=== PATIENT | female | born 1955 | race Caucasian/White ===

== ENCOUNTER 2020-02-06 10:10 | Day surgery (SDC) | payer OTHER, SELFPAY ==
[2020-02-06] VITALS (7 sets, daily range): BP systolic 132–150; BP diastolic 93–102; PULSE 93–134; RESP 14–18; TEMP 36.1–36.8; O2SAT 95–99
--- NOTE | ~2020-02-06 | XR_ITS ---
EXAMINATION: XR retrograde pyelo w/stent LT EXAM DATE: 02/06/2020 13:39 INDICATION: Left-sided retrograde, stent placement. TECHNIQUE: Fluoroscopy used during XR retrograde pyelo w/stent LT performed by Dr. Kenisha Vera MD. The DAP for this procedure was 341 radcm2. FINDINGS: Left ureter was cannulated, injected. Mild left hydronephrosis. A double-J ureteral stent was positioned. Correlate with procedure note. IMPRESSION: Fluoroscopy used during XR retrograde pyelo w/stent LT. Reviewed, dictated and finalized at location A. S MANAGER
--- NOTE | ~2020-02-06 | XR_ITS ---
EXAMINATION: XR abdomen/kub 1V EXAM DATE: 02/06/2020 11:47 INDICATION: Kidney stone. TECHNIQUE: Frontal projection(s) of the abdomen for interpretation. Correlation is made to CT same da te. FINDINGS: 1.5 cm stone in the left ureteropelvic junction identified, indicated. Nonobstructive klaus l gas pattern. Moderate to severe lumbar spondylosis. There is no organomegaly. IMPRESSION: Left UPJ stone identified. Reviewed, dictated and finalized at location A. L EQUIPMENT MECHANIC IMPRESSION: Left UPJ stone identified.
--- NOTE | ~2020-02-06 | CT_ITS ---
EXAMINATION: CT abdomen pelvis wo con EXAM DATE: 02/06/2020 10:56 INDICATION: Left flank pain. Vomiting. Renal stones. TECHNIQUE: Spiral CT of the abdomen and pelvis was performed without contrast. Axial, coronal and sag ittal images were reviewed. The dose-length product (DLP) for this examination was 558.98 mGy-cm. T he exposure was tailored according to patient size (auto mA exposure control), and iterative reconstr uction (ASIR) was used as additional dose reduction technique. Comparison is made to prior examinatio n from 03/11/2011. FINDINGS: There is a left renal pelvic 1.5 cm stone, moderate obstructive nephropathy. No other genit ourinary calcifications. The uterus is unremarkable. The bladder is unremarkable. There is hepati c steatosis without suspicious focal lesion identified. Spleen, adrenal glands, pancreas are unremark able. Gallbladder is unremarkable. No biliary obstruction. There is no retroperitoneal or pelvic l ymphadenopathy. There is mild scattered arteriosclerotic disease. The appendix is normal. There is small sliding gastroesophageal hiatal hernia. There is expected am ount of colonic stool. No free intraperitoneal gas. Couple of small right breast nodules, patient did have a mammogram in 2019 so recommend continued myrtle ual surveillance. Aortic root measures 4.2 cm, mildly dilated. A sclerotic region within L4 and mild chronic L5 compression fractures are unchanged going back to 2010. IMPRESSION: 1. Left UPJ 1.5 cm stone, moderate obstructive nephropathy. 2. Several left breast nodules probably previously evaluated on mammogram last year. Recommend lenard nued mammogram screening. 3. Small hiatal hernia. 4. Hepatic steatosis. Reviewed, dictated and finalized at location A. NG AND QUARRYING MACHINERY REPAIRER IMPRESSION: 1. Left UPJ 1.5 cm stone, moderate obstructive nephropathy. 2. Several left breast nodules probably previously evaluated on mammogram last year. Recommend continued mammogram screening. 3. Small hiatal hernia. 4. Hepatic steatosis.
--- NOTE | 2020-02-06 10:37 | ED.ABDPAIN ---
HPI - Abdominal Pain General Chief Complaint: Abdominal Pain Stated Complaint: lt flank pain, nausea Time Seen by Provider: 02/06/20 10:17 Source: RN notes reviewed History of Present Illness HPI narrative: Patient presents emergency department from home for left flank pain. Patient states pain began yesterday pain is located left flank does not radiate described as sharp and stabbing associate with nausea vomiting. Patient states she has a history of previous kidney stones and feels similar of the past states she did not take any pain medication this morning denies any diarrhea Related Data Home Medications Medication Instructions Recorded Confirmed multivitamin 1 tablet PO DAILY 05/30/19 potassium 99 mg tablet mg PO 05/30/19 vitamin E (dl, acetate) 400 unit 400 unit PO DAILY 05/30/19 capsule mecobalamin (vitamin B12) 1,000 1,000 mcg PO DAILY 10/31/19 10/31/19 mcg chewable tablet Allergies Allergy/AdvReac Type Severity Reaction Status Date / Time No Known Allergies Allergy Verified 02/06/20 10:27 Review of Systems Review of Systems: Narrative: Gen.: Denies fevers or chills ENT: Denies congestion Respiratory: Denies shortness of breath or cough CV: Denies chest pain or palpitations GI: Denies abdominal pain reports nausea vomiting denies diarrhea denies burning, urgency, frequency or hematuria Musculoskeletal: Denies back pain or muscle pain Neuro: Denies numbness, tingling, weakness or focal weakness Skin: Denies rash Except as documented, all other systems reviewed and negative PMFSH Past Medical History Medical History (Updated 02/06/20 @ 12:40 by Alejandro Marcum DO) Alcohol use Benign essential HTN High blood triglycerides Hydronephrosis Left ureteral stone MDD (major depressive disorder) Transaminitis Family History Family History Father Family history of premature coronary heart disease Hypertension Family history of elevated blood lipids Social History Social History Social History: Smoking status: Never smoker Second hand tobacco smoke exposure: No Alcohol intake: current Drinks per week: 14 Substance use: never Substance use type: does not use Gender identity (if verbalized by the patient): Female Exam Narrative: Exam Narrative: APPEARANCE: No acute distress, nontoxic, resting in bed HEENT: Normocephalic, atraumatic, OMM RESPIRATORY: No respiratory distress, clear to auscultation bilaterally with no rhonchi wheezing or rales CARDIOVASCULAR: RRR s murmur ABDOMINAL: Soft, nondistended, nontender palpation no rebound or guarding, left flank tenderness MUSCULOSKELETAl: Moves all extremities. No clubbing, cyanosis or edema. NEURO: Awake and alert. Following commands, speech normal, no focal deficits SKIN:: Warm, dry. Normal Color PSYCHIATRIC: Normal affect/mood Course Course Emergency Course: Called and discussed with Dr. Bravo presentation work-up. At this time agrees with plan to take patient to the OR for stent placement Discussed with patient plan for or in agreement at this time Vital Signs Vital signs: Vital Signs Temperature 97.0 F L 02/06/20 10:23 Pulse Rate 103 H 02/06/20 10:23 Respiratory Rate 18 02/06/20 10:23 Blood Pressure 150/97 H 02/06/20 10:23 Pulse Oximetry 99 02/06/20 10:23 Temperature 97.0 F L 02/06/20 10:23 Pulse Rate 96 02/06/20 11:04 Respiratory Rate 18 02/06/20 11:04 Blood Pressure 148/95 H 02/06/20 11:04 Pulse Oximetry 99 02/06/20 11:04 MDM - Abdominal Pain Lab Data Result diagrams: 02/06/20 10:33 02/06/20 10:33 Labs: Lab Results 02/06/20 02/06/20 02/06/20 Range/Units 10:33 10:33 11:36 WBC 12.4 H (4.5-10.0) K/mm3 RBC 4.38 (4.2-5.4) M/mm3 Hgb 15.4 H (12.0-15.0) g/dL Hct 42.6 (37.0-47.0) % MCV 97.3 (80-100)
[2020-02-06 10:41] LABS: Basophils Percent Auto 0.2 % (0.2-1.2); Hematocrit 42.6 % (37.0-47.0); Hemoglobin 15.4 g/dL (12.0-15.0); Immature Granulocyte Absolute 0.06 K/mm3 (0.00-0.031); Immature Granulocyte Percent A 0.5 % (0-0.5); Lymphocytes Absolute Auto 1.12 K/mm3 (0.9-3.2); Lymphocytes Percent Auto 9.1 % (18.3-44.2); Mean Corpuscular HGB Conc 36.2 g/dl (32-36); Mean Corpuscular Hemoglobin 35.2 pg (26-34); Mean Corpuscular Volume 97.3 fl (80-100); Mean Platelet Volume 9.3 fl (7.4-10.4); Monocytes Absolute Auto 0.6 K/mm3 (0.1-0.6); Monocytes Percent Auto 4.5 % (2.6-8.5); Neutrophils Absolute Auto 10.6 K/mm3 (1.3-6.7); Neutrophils Percent Auto 85.7 % (45.5-73.1); Platelet Count Result 271 k/mm3 (150-375); Red Blood Count 4.38 M/mm3 (4.2-5.4); Red Cell Distribution Width 11.7 % (11.5-14.5); White Blood Count 12.4 K/mm3 (4.5-10.0)
[2020-02-06] MEDS: SODIUM CHLORIDE 0.9% IV 1,000 ML 999 ML IV CONT (10:44)
[2020-02-06] MEDS: ONDANSETRON INJ 4 MG/2 ML VIAL IV PUSH (10:45)
[2020-02-06 10:54] LABS: Anion Gap 16 mmol/L (8-16); Blood Urea Nitrogen 21 mg/dL (7-17); Calcium 9.5 mg/dL (8.4-10.2); Carbon Dioxide 22 mmol/L (22-30); Chloride 98 mmol/L (98-107); Estimated CRCL calculation 45 ml/min; Estimated Glomerular Filt Rate 56; Glucose 149 mg/dL (65-105); Potassium 4.3 mmol/L (3.4-5.0); Sodium 136 mmol/L (137-145)
[2020-02-06 11:49] LABS: Add Urine Microscopic? YES; Appearance Urine Clear (Clear); Bilirubin Urine Negative (Negative); Blood Urine 1+ (Negative); Color Urine Yellow (Yellow); Glucose Urine UA Negative (Negative); Ketones Urine Negative (Negative); Leukocyte Esterase Ur Trace LEU/UL (Negative); Nitrate Urine Negative (Negative); Protein Urine 1+ mg/dL (Negative); Specific Grav Ur 1.024 (1.001-1.035); Squamous Epithelial Cell Urine Few /hpf (Few); Transitional Epi Cells Urine Rare /hpf (None Seen); Urobilinogen Urine Negative mg/dL (<2.0)
--- NOTE | 2020-02-06 12:33 | WPDURCON ---
Assessment and Plan Assessment and plan (1) Left ureteral stone: Code(s): N20.1 - Calculus of ureter Status: Acute Assessment and Plan: Left UPJ 1.5 cm stone, moderate obstructive nephropathy. -risks benefits alternatives discussed the patient. The patient has elected to proceed with cystoscopy and left ureteral stenting today. The patient understands risks of procedure including not limited to infection, bleeding, pain, injury to surrounding structures, inability to place a stent. She understands the stent is a temporary device. She understands that she will need definitive stone intervention down the road. As the stone seen on KUB we will hopefully get the patient scheduled for an outpatient ESWL procedure (2) Hydronephrosis: Code(s): N13.30 - Unspecified hydronephrosis Status: Acute Urology Consult Note HPI Date Seen: 02/06/20 Requesting Physician: Kenisha Vera MD Primary Care Provider: Pamela Ayala MD Consult Narrative Narrative: Pricilla Bender is a 64 year old female with a history of stone disease. She underwent a lithotripsy with Dr. Martin in 2011 for a left 8mm ureteral stone. The patient presented to the emergency department today with multiple days of nausea and vomiting with flank pain. The patient was found on CT scan imaging to have a 15mm left proximal ureteral stone with associated hydronephrosis. The patient denies fever chills. Review of Systems Constitutional: Constitutional: Reports as per HPI Eyes: Eyes: Reports as per HPI Cardiovascular: Cardiovascular: Reports as per HPI Respiratory: Respiratory: Reports as per HPI FORMERLY [facility], [facility] Past Medical History Medical History (Updated 02/06/20 @ 12:37 by Kenisha Vera MD) Alcohol use Benign essential HTN High blood triglycerides Hydronephrosis Left ureteral stone MDD (major depressive disorder) Transaminitis Family History Family History Father Family history of premature coronary heart disease Hypertension Family history of elevated blood lipids Social History Social History Social History: Smoking status: Never smoker Second hand tobacco smoke exposure: No Alcohol intake: current Drinks per week: 14 Substance use: never Substance use type: does not use Gender identity (if verbalized by the patient): Female Meds Home Medications and Allergies Home Medications Medication Instructions Recorded Confirmed Type omeprazole 40 mg capsule,delayed 40 mg PO DAILY #90 cap 04/24/19 Rx release multivitamin 1 tablet PO DAILY 05/30/19 History potassium 99 mg tablet mg PO 05/30/19 History vitamin E (dl, acetate) 400 unit 400 unit PO DAILY 05/30/19 History capsule venlafaxine 75 mg capsule,extended 75 mg PO DAILY #90 cap 10/10/19 Rx release 24 hr lisinopril 10 1 tablet PO DAILY #90 tablet 10/17/19 10/17/19 Rx mg-hydrochlorothiazide 12.5 mg tablet mecobalamin (vitamin B12) 1,000 1,000 mcg PO DAILY 10/31/19 10/31/19 History mcg chewable tablet metoprolol succinate 50 mg 50 mg PO DAILY #90 tablet 11/27/19 Rx tablet,extended release 24 hr Allergies Allergy/AdvReac Type Severity Reaction Status Date / Time No Known Allergies Allergy Verified 02/06/20 10:27 Vital Signs Vital Signs - 24 hr 02/06/20 10:23 02/06/20 11:04 Temperature 36.1 C L Pulse Rate 103 H 96 Respiratory Rate 18 18 Blood Pressure 150/97 H 148/95 H Pulse Oximetry 99 99 Exam Const: General: cooperative, healthy appearing and comfortable HENMT: Head: normal to inspection Eyes: General: appearance normal, both eyes and all related structures Resp: Effort & Inspection: normal respiratory effort GI: Inspection: normal to inspection Back/Spine/Pelvis: Back: no CVA tenderness Results Labs CBC & Chem 7: 02/06/20 10:33 02/05
--- NOTE | 2020-02-06 12:37 | WPDANESEPPF ---
Anes - Initial Pre Proc Eval Procedure: Operation Date: 02/06/20 13:00 Proposed Procedures p Cystoscopy, Left Stent Placement - Kenisha Vera MD Date/Time: 02/06/20 12:37 Surgeon: Kenisha Vera MD Pre Op Diagnosis: lt flank pain, nausea Patient Data Age: 64 Gender: F Height: 5 ft 5 in Weight: 72.5 kg Last Vital Signs Temp 97.0 F L 02/06/20 10:23 Pulse 96 02/06/20 11:04 Resp 18 02/06/20 11:04 BP 148/95 H 02/06/20 11:04 Pulse Ox 99 02/06/20 11:04 Allergies Allergy/AdvReac Type Severity Reaction Status Date / Time No Known Allergies Allergy Verified 02/06/20 10:27 Home Medications Medication Instructions Recorded Confirmed Type omeprazole 40 mg capsule,delayed 40 mg PO DAILY #90 cap 04/24/19 Rx release multivitamin 1 tablet PO DAILY 05/30/19 History potassium 99 mg tablet mg PO 05/30/19 History vitamin E (dl, acetate) 400 unit 400 unit PO DAILY 05/30/19 History capsule venlafaxine 75 mg capsule,extended 75 mg PO DAILY #90 cap 10/10/19 Rx release 24 hr lisinopril 10 1 tablet PO DAILY #90 tablet 10/17/19 10/17/19 Rx mg-hydrochlorothiazide 12.5 mg tablet mecobalamin (vitamin B12) 1,000 1,000 mcg PO DAILY 10/31/19 10/31/19 History mcg chewable tablet metoprolol succinate 50 mg 50 mg PO DAILY #90 tablet 11/27/19 Rx tablet,extended release 24 hr Laboratory Tests 02/06/20 02/06/20 02/06/20 10:33 10:33 11:36 WBC 12.4 K/mm3 H K/mm3 (4.5-10.0) RBC 4.38 M/mm3 M/mm3 (4.2-5.4) Hgb 15.4 g/dL H g/dL (12.0-15.0) Hct 42.6 % % (37.0-47.0) MCV 97.3 fl fl (80-100) MCH 35.2 pg H pg (26-34) MCHC 36.2 g/dl H g/dl (32-36) RDW 11.7 % % (11.5-14.5) Plt Count 271 k/mm3 k/mm3 (150-375) MPV 9.3 fl fl (7.4-10.4) Immature Gran % (Auto) 0.5 % % (0-0.5) Neut % (Auto) 85.7 % H % (45.5-73.1) Lymph % (Auto) 9.1 % L % (18.3-44.2) [place] % (Auto) 4.5 % % (2.6-8.5) Eos % (Auto) 0.0 % % (0-4.4) Baso % (Auto) 0.2 % % (0.2-1.2) Lymph # (Auto) 1.12 K/mm3 K/mm3 (0.9-3.2) [place] # (Auto) 0.6 K/mm3 K/mm3 (0.1-0.6) Eos # (Auto) 0.0 K/mm3 K/mm3 (0-0.3) Baso # (Auto) 0.0 K/mm3 K/mm3 (0.0-0.1) Abs Immat Gran (auto) 0.06 K/mm3 H K/mm3 (0.00-0.031) Absolute Neuts (auto) 10.6 K/mm3 H K/mm3 (1.3-6.7) Absolute Nucleated RBC 0.0 K/mm3 K/mm3 (0.0-0.012) Nucleated RBC % 0.0 % % (0.0-0.2) Sodium 136 mmol/L L mmol/L (137-145) Potassium 4.3 mmol/L mmol/L (3.4-5.0) Chloride 98 mmol/L mmol/L (98-107) Carbon Dioxide 22 mmol/L mmol/L (22-30) Anion Gap 16 mmol/L mmol/L (8-16) BUN 21 mg/dL H mg/dL (7-17) Creatinine 1.00 mg/dL mg/dL (0.7-1.0) Estim Creat Clear Calc 45 ml/min ml/min Estimated GFR 56 L (59 - ) Glucose 149 mg/dL H mg/dL (65-105) Calcium 9.5 mg/dL mg/dL (8.4-10.2) Urine Color Yellow (Yellow) Urine Appearance Clear (Clear) Urine pH 6.0 (5.0-9.0) Ur Specific Jay 1.024 (1.001-1.035) Urine Protein 1+ mg/dL H mg/dL (Negative) Urine Glucose (UA) Negative mg/dL mg/dL (Negative) Urine Ketones Negative mg/dL mg/dL (Negative) Ur Blood (Man) 1+ H (Negative) Urine Nitrate Negative (Negative) Urine Bilirubin Negative (Negative) Urine Urobilinogen Negative mg/dL mg/dL (<2.0) Leukocyte Esterase Rfl Trace KRISTAN/UL H KRISTAN/UL (Negative) Urine RBC 6-10 /hpf H /hpf (0-2) Urine WBC 4-6 /hpf H /hpf Ur Squamous Epith Cells Few /hpf /hpf (Few) Ur Transition Epith Cell Rare /hpf /hpf (None Seen) Hyaline Casts 1-
[2020-02-06] MEDS: LACTATED RINGERS 1,000 ML 30 ML IV CONT (12:58)
--- NOTE | 2020-02-06 13:07 | WPDHPUPDATE1 ---
History and Physical Update Update Date/Time: 02/06/20 13:07 History and Physical has been reviewed, including an updated exam of the patient. There are NO changes in the patient's condition. Risks, benefits, and alternatives have been discussed and questions answered. Patient agrees to proceed with procedure.
[2020-02-06] MEDS: LIDOCAINE HCL 2% GEL UROJET 10 ML PKG MUCOUS MEM (13:29)
--- NOTE | 2020-02-06 13:29 | PM.PROC ---
Procedure Note - Detailed Date of procedure: 02/06/20 Pre-op diagnosis: lt flank pain, nausea left proximal ureteral stone Post-op diagnosis: same Procedure performed: Cystoscopy, left retrograde pyelogram, left renal stent insertion Description of procedure: Informed consent was obtained. Patient taken the operating. She was given a mac anesthetic. She was given preoperative IV antibiotics in the emergency department. She was placed in the dorsal lithotomy position. She was prepped and draped normal sterile fashion. A 22 F cystoscope was inserted through the urethra into the bladder reinspected the bladder and it was without mucosal abnormality. The patient had bilateral orthotopic ureteral orifices. Licensed Prosthetist film revealed the 2cm UPJ stone to be visible. We then performed retrograde pyelogram in advance the wire beyond the level of the stone. We placed a 4.8 variable length stent with a curl in the renal pelvis and a curl in the bladder. The bladder was emptied and then 10cc of viscous lidocaine were instilled. Patient to PACU in stable condition. She will have elective ESWL in the near future Anesthesia: MAC Surgeon: Kenisha Vera MD Drains: No Packing: No Pathology: none sent Complications: No immediate complications Condition: stable Disposition: PACU
== END 2020-02-06 15:00 | disposition home or self-care (01) ==
LOC: ANHED 12:09 → ANHSURGERY 12:20
PROVIDERS: Emergency Provider Emergency Medicine; PCP Family Medicine; Visit Provider Urology
PROC: (CPT 52352; principal; 2020-02-06 13:00)
DX: N13.2 Hydronephrosis with renal and ureteral calculous obstruction (principal); N39.0 Urinary tract infection, site not specified; I10 Essential (primary) hypertension; E78.1 Pure hyperglyceridemia; F32.9 Major depressive disorder, single episode, unspecified
CPT/HCPCS: 52332; 36415; 74018; 74176; 74420; 80048; 81001; 85025; 87086; 87088; 96361; 96365; 96367; 96375; 99285; A9270; C1769; C1887; C2617; J0131; J0696; J2250; J2405; J2704; J7030; J7120; Q9966

== ENCOUNTER 2020-02-07 00:09 | Outpatient (CLI) | payer OTHER, SELFPAY ==
[2020-02-07 21:00] LABS: SARS-CoV-2 RNA PCR Negative
== END 2020-02-07 00:10 | disposition home or self-care (01) ==
LOC: ANHCOVIDDT 00:10
PROVIDERS: PCP Family Medicine; Visit Provider Urology
DX: Z01.812 Encounter for preprocedural laboratory examination (principal); Z20.828 Contact with and (suspected) exposure to other viral communicable diseases
CPT/HCPCS: 87635; C9803; U0003

== ENCOUNTER 2020-02-07 09:17 | Outpatient (CLI) | payer OTHER, SELFPAY ==
--- NOTE | 2020-02-07 09:00 | ECG_ITS ---
Measurements Intervals [place] Rate: 92 P: 22 AL: 137 QRS: -25 QRSD: 82 T: 2 QT: 348 QTc: 431 Interpretive Statements SINUS RHYTHM POSSIBLE LEFT ATRIAL ENLARGEMENT VOLTAGE CRITERIA FOR LVH POOR R WAVE PROGRESSION, ANTERIOR LEADS BORDERLINE T WAVE ABNORMALITY- INFERIOR LEADS BASELINE WANDER- V3 BORDERLINE ECG Electronically Signed On 02-07-2020 10:00:05 ENTERPRISE ACCOUNT EXECUTIVE by Tor Tavares D.O.
[2020-02-07 09:52] LABS: Prothrombin Time 13.5 Seconds (11.1-14.7)
== END 2020-02-07 09:18 | disposition home or self-care (01) ==
LOC: ANHSURGERY 09:18
PROVIDERS: PCP Family Medicine; Visit Provider Urology
DX: N20.0 Calculus of kidney (principal); I10 Essential (primary) hypertension; Z01.818 Encounter for other preprocedural examination; R94.31 Abnormal electrocardiogram [ECG] [EKG]
CPT/HCPCS: 36415; 85610; 85730; 93005

== ENCOUNTER 2020-02-08 04:50 | Day surgery (SDC) | payer OTHER, SELFPAY ==
[2020-02-06 14:54] VITALS: BMI 26.6
[2020-02-08] VITALS (8 sets, daily range): BP systolic 125–154; BP diastolic 75–101; PULSE 83–96; RESP 16–20; TEMP 36.2–36.6; O2SAT 92–100
--- NOTE | ~2020-02-08 | XR_ITS ---
EXAMINATION: XR abdomen/kub 1V DATE: 02/08/2020 07:49 INDICATION: Left kidney stone. TECHNIQUE: A supine view of the abdomen on 2 radiographs was obtained. COMPARISON: Abdomen radiograph 02/06/2020, CT abdomen and pelvis 02/06/2020 FINDINGS: There are no dilated loops of bowel. There is a phlebolith in left pelvis. There is a left internal ureteral stent in expected position. There is a 13 mm stone in left renal pelvis. IMPRESSION: 1. 13 mm stone in left renal pelvis. 2. Left internal ureteral stent in expected position. Reviewed, dictated and finalized at location A. ROLL FINISHER
--- NOTE | 2020-02-08 06:11 | WPDHPUPDATE1 ---
History and Physical Update Update Date/Time: 02/08/20 06:11 History and Physical has been reviewed, including an updated exam of the patient. There are NO changes in the patient's condition. Risks, benefits, and alternatives have been discussed and questions answered. Patient agrees to proceed with procedure.
[2020-02-08] MEDS: LACTATED RINGERS 1,000 ML 30 ML IV CONT (08:16)
--- NOTE | 2020-02-08 09:15 | WPDANESEPPF ---
Anes - Initial Pre Proc Eval Procedure: Operation Date: 02/08/20 10:00 Proposed Procedures p Left Ureteral Extracorporeal Shock Wave Lithotripsy - Stanislaw Martin MD Date/Time: 02/08/20 09:15 Surgeon: Stanislaw Martin MD Pre Op Diagnosis: Left Kidney Stone Patient Data Age: 64 Gender: F Height: 1.65 m Weight: 72.72 kg Allergies Allergy/AdvReac Type Severity Reaction Status Date / Time No Known Allergies Allergy Verified 02/06/20 14:16 Home Medications Medication Instructions Recorded Confirmed Type multivitamin 1 tablet PO DAILY 05/30/19 02/06/20 History potassium 99 mg tablet 99 mg PO DAILY 05/30/19 02/06/20 History vitamin E (dl, acetate) 400 unit 400 unit PO DAILY 05/30/19 02/06/20 History capsule venlafaxine 75 mg capsule,extended 75 mg PO DAILY #90 cap 10/10/19 02/06/20 Rx release 24 hr lisinopril 10 1 tablet PO DAILY #90 tablet 10/17/19 02/06/20 Rx mg-hydrochlorothiazide 12.5 mg tablet mecobalamin (vitamin B12) 1,000 1,000 mcg PO DAILY 10/31/19 02/06/20 History mcg chewable tablet metoprolol succinate 50 mg 50 mg PO DAILY #90 tablet 11/27/19 02/06/20 Rx tablet,extended release 24 hr omeprazole 20 mg PO DAILY 02/06/20 02/06/20 History Patient hx anesthesia problems: none Family hx anesthesia problems: none PMFSH Past Medical History Medical History (Updated 02/06/20 @ 12:40 by Alejandro Marcum DO) Alcohol use Benign essential HTN High blood triglycerides Hydronephrosis Left ureteral stone MDD (major depressive disorder) Transaminitis Family History Family History Father Family history of premature coronary heart disease Hypertension Family history of elevated blood lipids Social History Social History Social History: Smoking status: Never smoker Second hand tobacco smoke exposure: No Alcohol intake: current Drinks per week: 14 Alcohol use details: 2 glasses of wine per day Substance use: never Substance use type: does not use Living arrangements: with family Gender identity (if verbalized by the patient): Female Spiritual care concerns: No Anes - Eval Final PreProcedure Day of Procedure 02/08/20 09:15 Patient weight: overweight Heart: regular rate and rhythm Lungs: clear to auscultation and normal air movement Airway: Mallampati scale class II Neurological: alert and oriented Last oral intake: >/= 8 hours ASA classification: III Emergent: no Anesthetic plan: proceed Anesthesia type and monitoring: general LMA and standard monitoring Informed Consent: The patient's anesthetic plan and its attendant risks and benefits were discussed with the patient/family/POA. Questions were solicited and answers provided to the satisfaction of the patient/family/POA.
[2020-02-08] MEDS: ceFAZolin 2 GM/D5W 50 ML 2 GM/50 ML BAG IVPB (09:53)
--- NOTE | 2020-02-08 10:01 | PM.PROC ---
Procedure Note - Detailed Date of procedure: 02/08/20 Pre-op diagnosis: Left Kidney Stone Post-op diagnosis: same Procedure performed: Left ESWL Description of procedure: The patient was brought to the operative suite where she was placed in the supine position on the Dornier lithotripsy table. The focal point of the lithotripter was placed at a large, left renal pelvic calculus. A total of 2500 shocks were delivered at a power setting of 4. There appeared to be good fragmentation of the stone. The patient tolerated the procedure well and was taken to the recovery room in good condition. Anesthesia: GLMA Surgeon: Stanislaw Martin MD Estimated blood loss (mL): 0 Drains: No Packing: No Pathology: yes Complications: No immediate complications Condition: stable Disposition: PACU
== END 2020-02-08 12:41 | disposition home or self-care (01) ==
PROVIDERS: PCP Family Medicine; Visit Provider Urology
PROC: (CPT 50590; principal; 2020-02-08 10:00)
DX: N20.0 Calculus of kidney (principal); I10 Essential (primary) hypertension; E78.1 Pure hyperglyceridemia; F32.9 Major depressive disorder, single episode, unspecified
CPT/HCPCS: 50590; 36415; 74018; 85610; 85730; 87635; 93005; C9803; J0690; J1100; J2250; J2405; J2704; J3010; J7120; U0003

== ENCOUNTER 2020-02-22 11:58 | Outpatient (CLI) | payer OTHER, SELFPAY ==
--- NOTE | ~2020-02-22 | XR_ITS ---
XR abdomen/kub 1V 02/22/2020 12:23 Indication: Left ureteral stone Procedure: KUB Comparison: 02/08/2020 Findings: Bowel gas pattern is nonobstructive. There is a large stone in the left renal pelvis. Advan pushpa lumbar spondylosis. There is a left internal ureteral stent. Impression: 1: Large left renal stone involving the renal pelvis. Left internal ureteral stent in expected positi on. Reviewed, dictated and finalized at location B. GRAM TECHNICIAN Impression: 1: Large left renal stone involving the renal pelvis. Left internal ureteral st ent in expected position.
== END 2020-02-22 11:59 | disposition home or self-care (01) ==
PROVIDERS: PCP Family Medicine; Visit Provider Urology
DX: N20.0 Calculus of kidney (principal)
CPT/HCPCS: 74018

== ENCOUNTER 2020-03-03 11:53 | Outpatient (CLI) | payer OTHER, SELFPAY ==
--- NOTE | ~2020-03-03 | XR_ITS ---
XR abdomen/kub 1V 03/03/2020 12:14 Indication: Left ureteral stone Procedure: KUB Comparison: Comparison to multiple prior studies sequentially, with oldest reviewed study dated 05/30. Findings: Bowel gas pattern is nonobstructive. There is a left internal ureteral stent. There is a fa int opacity overlying the lower pole of the left kidney, possibly renal stone.. Advanced lumbar spond ylosis. No acute osseous abnormality. Impression: 1: Faint opacities lower pole of the left kidney, suspicious for renal stone. Consider correlate CT. Reviewed, dictated and finalized at location A. M MECHANIC Impression: 1: Faint opacities lower pole of the left kidney, suspicious for renal stone. C onsider correlate CT.
== END 2020-03-03 11:54 | disposition home or self-care (01) ==
PROVIDERS: PCP Family Medicine; Visit Provider Urology
DX: N20.1 Calculus of ureter (principal)
CPT/HCPCS: 74018

== ENCOUNTER → 2020-03-07 08:41 | Outpatient (CLI) | payer OTHER, SELFPAY ==
--- NOTE | ~2020-03-07 | CT_ITS ---
EXAMINATION: CT abdomen pelvis wo con DATE: 03/07/2020 09:01 INDICATION: Left ureteral stone. Lithotripsy therapy 3-4 weeks ago. History of breast cancer. TECHNIQUE: Computed tomography (CT) of the abdomen and pelvis was performed without intravenous contr ast. The dose-length product was 424.90 mGy-cm. Automated exposure control and iterative reconstructi on technique were employed. COMPARISON: CT dated 02/06/2020 FINDINGS: Lung bases are unremarkable. Heart size normal. There are irregular soft tissue nodules in the right breast, largest measuring 2.4 x 1 cm, unchanged from prior study. There is a tissue marker or calcification in the right breast near the chest wall. Fatty infiltration of the liver. The spleen, pancreas, adrenal glands and right kidney are unremarkab le. There is a left internal ureteral stent. There are multiple left renal stones. There is mild left periureteral edema. Small fat-containing umbilical hernia. Nonobstructive bowel gas pattern. Left in ternal ureteral stent in expected position. No abnormal pelvic masses or fluid collections. Severe hannah mbar spondylosis. No significant vascular abnormality. No lymphadenopathy. IMPRESSION: 1. Left nephrolithiasis. Left internal ureteral stent in expected position. 2: Right breast masses, largest measuring 2.4 cm. Correlation with diagnostic right mammogram and ul trasound recommended. 3: Fatty infiltration of the liver. Reviewed, dictated and finalized at location A. STANT OFFICE MANAGER IMPRESSION: 1. Left nephrolithiasis. Left internal ureteral stent in expected position. 2: Right breast masses, largest measuring 2.4 cm. Correlation with diagnostic right mammogram and ultrasound recommended. 3: Fatty infiltration of the liver.
== END ==
PROVIDERS: Visit Provider Urology
DX: N20.0 Calculus of kidney (principal); K76.0 Fatty (change of) liver, not elsewhere classified; K42.9 Umbilical hernia without obstruction or gangrene; M47.816 Spondylosis without myelopathy or radiculopathy, lumbar region; Z96.0 Presence of urogenital implants; N63.20 Unspecified lump in the left breast, unspecified quadrant
CPT/HCPCS: 74176

== ENCOUNTER 2020-04-07 11:16 | Emergency (ER) | payer OTHER, SELFPAY ==
--- NOTE | ~2020-04-07 | CT_ITS ---
EXAMINATION: CT abdomen pelvis wo con DATE: 04/07/2020 12:25 INDICATION: Left flank pain. TECHNIQUE: Computed tomography (CT) of the abdomen and pelvis was performed without intravenous contr ast. Automated exposure control and iterative reconstruction technique were employed. The dose-length product was 646.12 mGy-cm. COMPARISON: CT abdomen and pelvis 03/07/2020, 03/11/2011, mammogram 06/15/2018 FINDINGS: The visualized portions of the lung bases demonstrate mild atelectasis. There is mild radia tion fibrosis in anterolateral right lung. No pleural effusion. The heart size is normal. No pericard ial effusion. There are masses in the outer inferior right breast. There is diffuse hepatic steatosis . The gallbladder, spleen, pancreas, adrenal glands, and right kidney are normal. There is moderate l eft hydronephrosis. There is a left internal ureteral stent in expected position. There is a 3 mm sto ne in proximal left ureter. There are least 6 stones measuring up to 3 mm in left renal pelvis. There are multiple stones or clusters of stones in left kidney measuring up to 13 mm. There are no dilated loops of bowel. The appendix is normal. There is a small sliding hiatal hernia. There are no patholo gically enlarged lymph nodes. There is no free intraperitoneal fluid. There is severe lumbar spondylo sis. IMPRESSION: 1. Stones in the left kidney, left renal pelvis, and proximal left ureter with worsened moderate left hydronephrosis and left internal ureteral stent in expected position. 2. Right breast masses with worsening from 03/11/2011. Diagnostic right-sided mammogram and breast ul trasound are recommended. Reviewed, dictated and finalized at location B. [facility] [employer] IMPRESSION: 1. Stones in the left kidney, left renal pelvis, and proximal left ureter with worsened moderate left hydronephrosis and left internal ureteral stent in expec adilene position. 2. Right breast masses with worsening from 03/11/2011. Diagnostic right-sided m ammogram and breast ultrasound are recommended.
[2020-04-07 11:24] VITALS: BP 177/140; PULSE 130; RESP 16; TEMP 36.2; O2SAT 98
[2020-04-07 11:49] LABS: Basophils Absolute Auto 0.1 K/mm3 (0.0-0.1); Basophils Percent Auto 0.5 % (0.2-1.2); Eosinophils Absolute Auto 0.1 K/mm3 (0-0.3); Eosinophils Percent Auto 1.2 % (0-4.4); Hematocrit 46.9 % (37.0-47.0); Hemoglobin 16.3 g/dL (12.0-15.0); Immature Granulocyte Absolute 0.04 K/mm3 (0.00-0.031); Immature Granulocyte Percent A 0.4 % (0-0.5); Lymphocytes Absolute Auto 1.68 K/mm3 (0.9-3.2); Lymphocytes Percent Auto 15.1 % (18.3-44.2); Mean Corpuscular HGB Conc 34.8 g/dl (32-36); Mean Corpuscular Hemoglobin 34.6 pg (26-34); Mean Corpuscular Volume 99.6 fl (80-100); Mean Platelet Volume 9.3 fl (7.4-10.4); Monocytes Absolute Auto 1.1 K/mm3 (0.1-0.6); Monocytes Percent Auto 9.6 % (2.6-8.5); Neutrophils Absolute Auto 8.1 K/mm3 (1.3-6.7); Neutrophils Percent Auto 73.2 % (45.5-73.1); Platelet Count Result 301 k/mm3 (150-375); Red Blood Count 4.71 M/mm3 (4.2-5.4); Red Cell Distribution Width 11.6 % (11.5-14.5); White Blood Count 11.1 K/mm3 (4.5-10.0)
[2020-04-07 12:00] LABS: Anion Gap 12 mmol/L (8-16); Blood Urea Nitrogen 16 mg/dL (7-17); Calcium 9.7 mg/dL (8.4-10.2); Carbon Dioxide 24 mmol/L (22-30); Chloride 100 mmol/L (98-107); Estimated Glomerular Filt Rate > 60; Glucose 148 mg/dL (65-105); Potassium 3.7 mmol/L (3.4-5.0); Sodium 136 mmol/L (137-145)
[2020-04-07 12:01] LABS: Add Urine Microscopic? YES; Appearance Urine Cloudy (Clear); Bacteria Urine Trace /hpf; Bilirubin Urine Negative (Negative); Blood Urine 3+ (Negative); Color Urine Yellow (Yellow); Glucose Urine UA 1+ mg/dL (Negative); Ketones Urine Negative (Negative); Leukocyte Esterase Ur Trace LEU/UL (Negative); Mucus Urine Rare /lpf; Nitrate Urine Negative (Negative); Protein Urine 2+ mg/dL (Negative); RBC Urine >75 /hpf (0-2); Squamous Epithelial Cell Urine Few /hpf (Few); Transitional Epi Cells Urine Rare /hpf (None Seen); Urobilinogen Urine Negative mg/dL (<2.0)
--- NOTE | 2020-04-07 12:10 | ED.GENADULT ---
HPI - General Adult General Chief complaint: Back Pain/Injury Stated complaint: LEFT FLANK PAIN Time Seen by Provider: 04/07/20 11:49 Source: patient History of Present Illness HPI narrative: Patient is a 64 y/o female complaining left back pain starting today. She describes her pain as kidney stone pain and rates it as 7-8/10. There is no pain radiation. There is no alleviating or exacerbating factor. She also has some nausea and vomiting. Related Data Home Medications Medication Instructions Recorded Confirmed multivitamin 1 tablet PO DAILY 05/30/19 02/08/20 potassium 99 mg tablet 99 mg PO DAILY 05/30/19 02/08/20 vitamin E (dl, acetate) 400 unit 400 unit PO DAILY 05/30/19 02/08/20 capsule mecobalamin (vitamin B12) 1,000 1,000 mcg PO DAILY 10/31/19 02/08/20 mcg chewable tablet omeprazole 20 mg PO DAILY 02/06/20 02/08/20 Allergies Allergy/AdvReac Type Severity Reaction Status Date / Time No Known Allergies Allergy Verified 02/08/20 09:54 Review of Systems Constitutional: Constitutional: Denies chills, Denies fever(s), Denies headache(s) and Denies weakness Eyes: Eyes: Denies blurry vision ENT: Denies headache(s) and Denies neck pain Cardiovascular: Cardiovascular: Denies chest pain and Denies dyspnea Respiratory: Respiratory: Denies cough and Denies dyspnea Gastrointestinal: Gastrointestinal: Denies abdominal pain, Denies diarrhea, Denies nausea and Denies vomiting Genitourinary: Genitourinary: Reports as per HPI, Denies hematuria, Denies dysuria and Reports flank pain Musculoskeletal: Musculoskeletal: Denies back pain and Denies neck pain Neurologic: Denies headache(s) and Denies weakness [facility] Past Medical History Medical History (Updated 04/07/20 @ 13:36 by Linda Srinivasan MD) Alcohol use Benign essential HTN High blood triglycerides Hydronephrosis Kidney stone on left side Left ureteral stone MDD (major depressive disorder) Transaminitis Family History Family History Father Family history of premature coronary heart disease Hypertension Family history of elevated blood lipids Social History Social History Social History: Smoking status: Never smoker Second hand tobacco smoke exposure: No Alcohol intake: current Drinks per week: 14 Substance use: never Substance use type: does not use Gender identity (if verbalized by the patient): Female Spiritual care concerns: No Exam Const: General: no acute distress and well developed Orientation/consciousness: oriented to person, oriented to place, oriented to time and patient oriented x3 HENMT: Head: normocephalic Ears: external ears normal General nose exam: Normal external nose present Eyes: General: appearance normal, both eyes and all related structures Conjunctivae: conjunctivae normal Neck: Neck: normal visual inspection and full ROM Chest: Chest palpation & inspection: normal inspection of the chest and no tenderness Resp: Effort & Inspection: normal respiratory effort Auscultation: clear to auscultation bilaterally Cardio: Rate: tachycardic Rhythm: regular rhythm GI: GI Palp: No abdominal tenderness and Yes Soft to palpation Skin: General skin exam: normal color and turgor normal Neuro: General: oriented to person, oriented to place, oriented to time and patient oriented x3 Cognition (Neuro): normal cognition Extrem: General: normal to inspection, full ROM and no pedal edema Psych: Appearance: grossly normal Mental Status: mental status grossly normal Affect: normal affect Course Reevaluation(s) Reevaluation #1: Rechecked. Patient feels better. Discussed with patient about testing results including incidental findings of right breast mass. Patient states that she had known breast cancer and had seen Dr. Arenas in the past and had lumpectomy. Instructed patient to follow up wit
[2020-04-07] MEDS: MORPHINE SULFATE (*CRX) 4 MG/ML INJ IV PUSH (12:17)
[2020-04-07] MEDS: ONDANSETRON INJ 4 MG/2 ML VIAL IV PUSH (12:17)
[2020-04-07] MEDS: SODIUM CHLORIDE 0.9% IV 1,000 ML 999 ML IV CONT (12:17)
[2020-04-07 13:07] VITALS: BP 144/104; PULSE 88; RESP 16; O2SAT 98
[2020-04-07] MEDS: OXYBUTYNIN CHLORIDE 5 MG TABLET PO (13:07)
== END 2020-04-07 13:40 | disposition home or self-care (01) ==
PROVIDERS: Emergency Provider Emergency Medicine; PCP Family Medicine
DX: N13.2 Hydronephrosis with renal and ureteral calculous obstruction (principal); N63.10 Unspecified lump in the right breast, unspecified quadrant; I10 Essential (primary) hypertension; Z96.0 Presence of urogenital implants
CPT/HCPCS: 36415; 74176; 80048; 81001; 85025; 87086; 87088; 96361; 96374; 96375; 99284; A9270; J2270; J2405; J7030

== ENCOUNTER 2020-10-28 12:28 | Outpatient (CLI) | payer OTHER, SELFPAY ==
--- NOTE | ~2020-10-28 | MMUS_ITS ---
EXAMINATION: MM diagnostic steffanie BI w maite, US breast RT complete HISTORY: Palpable right breast abnormalities. History of right breast cancer. TECHNIQUE: Additional 3-D tomosynthesis images of the breasts were performed and synthetic 2-D images were generated. CAD analysis was submitted and interpreted. High resolution complete right breast ul trasound was performed. COMPARISON: 06/15/2018 BREAST PARENCHYMAL COMPOSITION: Breast composed of scattered areas of fibroglandular density. FINDINGS: MAMMOGRAPHIC FINDINGS: There is focal architectural distortion with dystrophic calcification in the medial aspect of the rig ht breast, consistent with previous lumpectomy site. There are multiple areas of new focal nodular as ymmetry in the periareolar and mid lateral aspect of the right breast. ULTRASOUND: Right breast ultrasound: At 8:00, 4 cm from the nipple, there is an irregular complex predominantly h ypoechoic mass with areas of angular margins and mixed posterior attenuation measuring 2.8 x 1.1 x 0. 9 cm. No internal vascularity. At 3:00, 1 cm from the nipple, there is an irregular shaped hypoechoic mass with dense posterior shadowing measuring 1.5 x 1.4 x 1.3 cm. No internal vascularity. Margins a re irregular. At 9:00, 1 cm from the nipple, there is a complex partially cystic hypoechoic mass marcial uring 9 mm with mixed posterior attenuation. IMPRESSION: 1. Multiple abnormal sonographic breast masses at 8:00, 3:00 and 9:00 described above. 2. Ultrasound-guided right breast biopsies of each of these masses recommended. BI-RADS category 4, suspicious findings. Reviewed, dictated and finalized at location A. IMPRESSION: 1. Multiple abnormal sonographic breast masses at 8:00, 3:00 and 9:00 described above. 2. Ultrasound-guided right breast biopsies of each of these masses recommended. BI-RADS category 4, suspicious findings.
== END 2020-10-28 12:29 | disposition home or self-care (01) ==
LOC: ANHIMG 12:30
PROVIDERS: PCP Family Medicine; Visit Provider Nurse Practitioner Obstetrics & Gynecology
DX: M85.80 Other specified disorders of bone density and structure, unspecified site (principal); Z85.3 Personal history of malignant neoplasm of breast; Z12.39 Encounter for other screening for malignant neoplasm of breast; N63.10 Unspecified lump in the right breast, unspecified quadrant; R92.8 Other abnormal and inconclusive findings on diagnostic imaging of breast
CPT/HCPCS: 76641; 77062; 77066; G0279

== ENCOUNTER 2020-11-28 13:25 | Outpatient (CLI) | payer OTHER, SELFPAY ==
--- NOTE | ~2020-11-28 | DEXA_ITS ---
Bone Density Report Name: Pricilla Bender Age: 65 Sex: Female Ethnicity: White Date of : 1955 Indication: osteopenia; height loss; cancer; postmenopausal Referring Provider: Alisa, Rupa Caba Study: Bone densitometry was performed. Exam Date: November 28, 2020 Accession number: [id number] Bone Density: Region BMD T-score Z-score Classification AP Spine (L3, L4) 1.106 0.0 1.9 Normal Femoral Neck (Left) 0.623 -2.0 -0.5 Osteopenia Total Hip (Left) 0.691 -2.1 -0.8 Osteopenia Total Hip Bilateral Avg 0.700 -2.0 -0.8 Osteopenia Femoral Neck (Right) 0.579 -2.4 -0.9 Osteopenia Total Hip (Right) 0.709 -1.9 -0.7 Osteopenia World Health Organization criteria for BMD impression classify patients as: Normal (T-score at or above -1.0), Osteopenia (T-score between -1.0 and -2.5), or Osteoporosis (T-score at or below -2.5). 10-year Fracture Risk(1): Major Osteoporotic Fracture 12% Hip Fracture 2.2% Reported Risk Factors: [place] (), Neck BMD=0.579, BMI=27.5 (1) FRAX(R) Version 3.08. Fracture probability calculated for an untreated patient. Fracture probability may be lower if the patient has received treatment. Previous Exams: Region Exam Age BMD T-score BMD Change BMD Change Date g/cm2 vs Baseline vs Previous AP Spine(L3, L4) 11/28/2020 65 1.106 0.0 0.032(3.0%)# 0.032(3.0%)# 01/18/2004 48 1.074 -0.2 Total Hip(Left) 11/28/2020 65 0.691 -2.1 -0.121(-14.9%) -0.121(-14.9%) 01/18/2004 48 0.812 -1.1 Total Hip(Right) 11/28/2020 65 0.709 -1.9 -0.070(-9.0%)# -0.070(-9.0%)# 01/18/2004 48 0.779 -1.3 *Denotes significance at 95% confidence level, LSC for AP Spine = 0.022 g/cm2, LSC for Total Hip = 0.027 g/cm2 Clinical Information Provided by Patient: Has the following medical conditions: Cancer Patient maximum height was 65 Menopause Age: 45 No regular weight bearing exercise Drinks caffeinated beverages Onset of menses at age 12 Number of children 2 Impression: The patient has low bone mass, based on the Right Femoral Neck T-score. The patient has an estimated ten-year risk of hip fracture of 2.2% and an estimated ten-year risk of major fracture of 12%, based on the WHO FRAX algorithm. No significant bone loss was observed. Discussion: BONE DENSITY IS LOW AT ONE OR MORE SKELETAL SITES. This patient's lowest T-score is low at one or more skeletal sites. It meets the World Health Organization's (WHO) criteria for
== END 2020-11-28 13:26 | disposition home or self-care (01) ==
PROVIDERS: PCP Family Medicine; Visit Provider Nurse Practitioner Obstetrics & Gynecology
DX: Z78.0 Asymptomatic menopausal state (principal); M85.89 Other specified disorders of bone density and structure, multiple sites
CPT/HCPCS: 77080

== ENCOUNTER 2021-01-10 14:16 | Emergency (ER) | payer OTHER, SELFPAY ==
[2021-01-10 14:22] VITALS: BP 139/96; PULSE 96; RESP 16; TEMP 36.5; O2SAT 99
--- NOTE | 2021-01-10 14:22 | ED.EAR ---
HPI - Ear Problem General Chief complaint: Ear Stated complaint: ear pain Time Seen by Provider: 01/10/21 14:22 Source: patient, RN notes reviewed and old records reviewed Mode of arrival: ambulatory Limitations: no limitations History of Present Illness HPI Narrative: 65-year-old female presents to the [facility] with complaints of left ear pain for the last 3 days. Patient states that she is about to have a mastectomy on Tuesday and wanted to make sure she does not have an infection. Patient has a history of breast cancer, hypertension, tachycardia, depression, anxiety and acid reflux. Denies any sinus symptoms. No fevers. No chest pain or shortness of breath. Denies any cough. Swelling or drainage from the ear. Has decreased hearing MD Complaint: ear pain (left) and decreased hearing Location: left ear Related Data Home Medications Medication Instructions Recorded Confirmed omeprazole 20 mg PO DAILY 02/06/20 05/28/20 Allergies Allergy/AdvReac Type Severity Reaction Status Date / Time No Known Allergies Allergy Verified 01/10/21 14:40 Review of Systems Review of Systems: All systems reviewed & are unremarkable except as noted in HPI and below Constitutional: Constitutional: Reports no additional constitutional complaints, Denies chills and Denies fever(s) Eyes: Eyes: Reports no additional eye complaints ENT: Reports as per HPI Comments: Left ear pain Cardiovascular: Cardiovascular: Reports no additional cardiovascular complaints and Denies chest pain Respiratory: Respiratory: Reports no additional respiratory complaints, Denies cough and Denies dyspnea Gastrointestinal: Gastrointestinal: Reports no additional gastrointestinal complaints Musculoskeletal: Musculoskeletal: Reports no additional musculoskeletal complaints Integumentary/Breasts: Skin/Breast: Reports system reviewed and no additional complaints, except as docu Neurologic: Reports system reviewed and no additional complaints, except as documented Psychiatric: Psychiatric: Reports no additional psychiatric complaints Allergic/Immunologic: Allergic/Immunologic: Reports no additional allergic/immunologic complaints [facility] Past Medical History Medical History (Updated 01/10/21 @ 16:26 by Zulma Palma) Alcohol use Benign essential HTN Breast cancer GERD (gastroesophageal reflux disease) High blood triglycerides Hydronephrosis Kidney stone on left side Left ureteral stone MDD (major depressive disorder) Transaminitis Family History Family History Father Family history of premature coronary heart disease Hypertension Family history of elevated blood lipids Social History Social History Social History: Smoking status: Never smoker Second hand tobacco smoke exposure: No Alcohol intake: current Drinks per week: 14 Alcohol use details: 2 glasses of wine per day Substance use: never Substance use type: does not use Gender identity (if verbalized by the patient): Female Sexual Orientation (if Verbalized by the Patient): Straight or Heterosexual Spiritual care concerns: No Exam Const: General: healthy appearing, no acute distress and alert Nutritional Appearance: well nourished Orientation/consciousness: patient oriented x3 Limitations: no limitations HENMT: Head: normal to inspection Ears: external ears normal, TM's normal bilaterally (Left normal after earwax removal) and Abnormal EAC present excessive cerumen on the left; no erythema, no edema, no EA tenderness and no otic discharge Face and sinus: normal facial exam and sinuses nontender Eyes: Conjunctivae: conjunctivae normal Pupils: Equal, round and reactive pupils present Neck: Neck: normal visual inspection, no lymphadenopathy and no meningeal signs Chest: Chest palpation & inspection: normal inspection of the chest Resp: Effort
== END 2021-01-10 14:42 | disposition home or self-care (01) ==
PROVIDERS: Emergency Provider Nurse Practitioner; PCP Family Medicine
DX: H61.22 Impacted cerumen, left ear (principal); K21.9 Gastro-esophageal reflux disease without esophagitis; Z85.3 Personal history of malignant neoplasm of breast; F32.9 Major depressive disorder, single episode, unspecified; I10 Essential (primary) hypertension
CPT/HCPCS: 69209; 99212; G0463

== ENCOUNTER 2021-03-24 11:04 | Emergency (ER) | payer OTHER, SELFPAY ==
[2021-03-24 11:25] VITALS: BP 135/87; PULSE 95; RESP 16; TEMP 36.5; O2SAT 97
--- NOTE | 2021-03-24 11:45 | ED.FEMALEGU ---
HPI - Female Genitourinary General Chief complaint: Urogenital-Female Stated complaint: Urinary pain Time Seen by Provider: 03/24/21 11:45 Source: patient and RN notes reviewed Mode of arrival: ambulatory Limitations: no limitations History of Present Illness HPI Narrative: 65-year-old female presents with concern for 4-day history of urine frequency, urgency, burning. She denies back pain, nausea, vomiting, abdominal pain. Reports suprapubic pressure. Reports she noticed today her urine is cloudy. MD elicited complaint: UTI Related Data Home Medications Medication Instructions Recorded Confirmed omeprazole 20 mg PO DAILY 02/06/20 05/28/20 Allergies Allergy/AdvReac Type Severity Reaction Status Date / Time No Known Allergies Allergy Verified 01/10/21 14:40 Review of Systems Review of Systems: CONSTITUTIONAL: Denies malaise, chills, sweats, or fever. CARDIOVASCULAR: Denies chest pain, palpitations, or edema. RESPIRATORY: Denies cough or dyspnea. GASTROINTESTINAL: Denies abdominal pain, nausea, vomiting, diarrhea GENITOURINARY: Reports dysuria, frequency, urgency, suprapubic pressure. Denies flank pain or hematuria. SKIN: Denies rash or itching. MUSCULOSKELETAL: Denies back pain or myalgia. All systems reviewed & are unremarkable except as noted in HPI and below PMFSH Past Medical History Medical History (Updated 03/24/21 @ 11:49 by Zulma Dickey NP) Alcohol use Benign essential HTN Breast cancer GERD (gastroesophageal reflux disease) High blood triglycerides Hydronephrosis Kidney stone on left side Left ureteral stone MDD (major depressive disorder) Transaminitis Family History Family History Father Family history of premature coronary heart disease Hypertension Family history of elevated blood lipids Social History Social History Social History: Smoking status: Never smoker Second hand tobacco smoke exposure: No Alcohol intake: current Drinks per week: 14 Alcohol use details: 2 glasses of wine per day Substance use: never Substance use type: does not use Gender identity (if verbalized by the patient): Female Sexual Orientation (if Verbalized by the Patient): Straight or Heterosexual Spiritual care concerns: No Comments At time of signature, agree with nursing past medical, surgical, social and family history. There is no relevant family history pertinent to the presenting complaint Exam Narrative: GENERAL: Well-appearing, well-nourished, and in no acute distress. HEAD: Normocephalic. EYES: PERRLA, conjunctivae clear. NECK: Supple. No lymphadenopathy CHEST: Clear to auscultation. No respiratory distress. HEART: Regular rate and rhythm. ABDOMEN: Soft, nontender upon palpation, nondistended, normal active bowel sounds, no palpable or pulsatile masses, no guarding. No CVA tenderness SKIN: Warm, dry, no rash. NEURO: Alert and oriented x3. PSYCH: Normal mood and affect Course Course Emergency Course: Patient is aware of diagnosis, understands and agrees to treatment plan. Anticipatory guidance given. Patient agrees to follow-up as directed and is aware of reasons to seek care at the emergency department. Portions of this record may have been created with voice recognition software Level of Care: Express Care Visit Vital Signs Vital signs: Vital Signs Temperature 97.7 F 03/24/21 11:25 Pulse Rate 95 03/24/21 11:25 Respiratory Rate 16 03/24/21 11:25 Blood Pressure 135/87 03/24/21 11:25 Pulse Oximetry 97 03/24/21 11:25 Temperature 97.7 F 03/24/21 11:25 Pulse Rate 95 03/24/21 11:25 Respiratory Rate 16 03/24/21 11:25 Blood Pressure 135/87 03/24/21 11:25 Pulse Oximetry 97 03/24/21 11:25 Reviewed. Patient has history of hypertension MDM - Female Genitourinary MDM Narrative Medical decision making narrative: Exam f
== END 2021-03-24 11:55 | disposition home or self-care (01) ==
PROVIDERS: Emergency Provider Nurse Practitioner
DX: R35.0 Frequency of micturition (principal); R30.0 Dysuria; R39.15 Urgency of urination; I10 Essential (primary) hypertension; K21.9 Gastro-esophageal reflux disease without esophagitis; Z85.3 Personal history of malignant neoplasm of breast
CPT/HCPCS: 81003; 87086; 87088; 99213; G0463